=== PATIENT | male | born 1970 | race African-American/Black ===

== ENCOUNTER → 2020-02-03 12:12 | Outpatient (CLI) | payer OTHER, SELFPAY ==
--- NOTE | 2020-02-03 | DI.RAD.S_ITS ---
PROCEDURE: FL HIP INJECTION MR/CT RT INDICATIONS: PAIN IN RIGHT HIP TECHNIQUE: The indications, alternatives, benefits, risks, and complications of the procedure were explained to the patient. Written informed consent was obtained and placed in the chart. The hip was examined fluoroscopically with the legs fixed in slight internal rotation, and a site for needle placement chosen for entry into the hip joint from an anterior approach. Care was taken to locate the common femoral artery and vein beforehand. The skin was prepped and draped in a sterile fashion, and 1% Lidocaine infiltrated from skin down to joint capsule. A spinal needle was inserted into the joint, and a small amount of iodinated contrast media injected to confirm intra-articular placement of the needle tip. This was followed by approximately 12 mL dilute solution of a gadolinium containing MR contrast agent. The needle was removed and a dressing was applied. The patient was given postprocedural instructions and sent to the MR suite for imaging. FINDINGS: A single fluoroscopic spot image demonstrates intra-articular location of injected iodinated contrast. IMPRESSION: Successful fluoroscopically guided administration of dilute Gadolinium solution into the hip joint for MR arthrogram. Dictated by: Ish Metcalf M.D. on 02/03/2020 at 14:26 Approved by: Ish Metcalf M.D. on 02/03/2020 at 14:26
--- NOTE | 2020-02-03 | DI.MRI.S_ITS ---
PROCEDURE: MR HIP RT W CON INDICATIONS: PAIN IN RIGHT HIP TECHNIQUE: After the administration of 10 mL of dilute intra-articular Gadolinium contrast, coronal STIR of the bony pelvis; coronal and oblique axial T1 spin echo with fat saturation, axial T2 fast spin echo with fat saturation, sagittal T1 spin echo with and without fat saturation of the involved hip. COMPARISON: None. FINDINGS: Image quality: Excellent. Bones and joints: Mild right hip joint osteoarthritis is seen with superior joint space narrowing and subchondral sclerosis. No intraosseous lesions or fractures. No avascular necrosis of the femoral head. The visualized lower lumbar spine appears normally aligned. The ligamental, neck, and labral plicae appear normal where visualized. Tendons and ligaments: The gluteus medius and minimus tendons appear intact, without associated muscle atrophy. The nearby proximal iliotibial band also appears intact. The iliopsoas tendon appears intact, without adjacent bursal fluid collections or evidence for impingement syndrome. The origin of the hamstring tendon is intact at the ischial tuberosity, as well as the associated sacrotuberous ligament. The straight and reflected heads of the rectus femoris muscle origin appear intact, as well as the conjoint tendon. The ligamentum teres appears intact where visualized. Labrum and cartilage: Focal area of signal abnormality involving superior anterior labrum is seen suggestive of focal superior anterior labral tear. Cartilage surface of the femoral head appears of normal thickness. No paralabral cysts. The alpha angle of the femur is within normal limits at less than 55 degrees. Soft tissues: Visualized muscles demonstrate normal bulk and internal signal. Quadratus femoris muscle demonstrates no internal edema to suggest ischiofemoral impingement. The proximal sciatic neurovascular bundle appears normal adjacent to the hamstring tendons. No free pelvic fluid. Bladder wall thickness is normal. Genitourinary structures and bowel loops appear normal where visualized. IMPRESSION: 1. Asymmetric mild right hip joint osteoarthritic changes. No marrow edema. No fracture or dislocation. No evidence of avascular necrosis. 2. Suggestion of focal superior anterior right hip labral tear. 3. No gross muscle or tendon signal abnormality. Dictated by: Sushil Lara M.D. on 02/03/2020 at 14:32 Approved by: Sushil Lara M.D. on 02/03/2020 at 14:34
== END ==
PROVIDERS: PCP General Practice; Referring Provider General Practice; Visit Provider General Practice
DX: M25.551 Pain in right hip (principal); M16.11 Unilateral primary osteoarthritis, right hip
CPT/HCPCS: 27093; 73722; 77002

== ENCOUNTER 2023-08-11 10:51 | Day surgery (SDC) | payer OTHER, SELFPAY ==
[2023-08-04 13:51] VITALS: BMI 36.6
--- NOTE | 2023-08-11 | PATH_ITS ---
[facility] Accession Number: [id number] No. of containers..01 Tissue . 01 Material submitted: . chest - RIGHT CHEST WALL . 01 Clinical history: . MASS . 01 Diagnosis: Right Chest Wall, Excision: Mature fibroadipose tissue, consistent with lipoma. NAFISA 08/14/2023 0919 Local . 01 Electronically signed: . Rodrigo Houston MD, Dermatopathologist NPI- [id number] . 01 Gross description: . The specimen is received in formalin labeled with the patient's named, , and right chest wall mass, and consists of a yellow, lobulated, soft tissue fragment measuring 9.1 x 6.5 x 4.3 cm. The external surface is inked blue and sectioning reveals a yellow, lobulated, unremarkable cut surface. [employer] sections are submitted in cassettes A1-A3. ([id number]) /NAFISA 08/12/2023 1012 Local . 01 Pathologist provided ICD-10: D17.9 . 01 CPT . 917615 Specimen Comment: A courtesy copy of this report has been sent to [phone] Performed at: 01 [facility] [address] [place] [address], [place], [place] [id number] MD Chester Mueller MD Phone: [phone]
[2023-08-11 11:26] VITALS: BMI 36.6
[2023-08-11 11:31] VITALS: BP 139/85; PULSE 77; RESP 17; TEMP 36.1; O2SAT 97
[2023-08-11] MEDS: LACTATED RINGERS 1,000 ML 42 ML IV (11:33)
--- NOTE | 2023-08-11 11:33 | PM.PREOP ---
Pre-operative Note COVID-19 COVID-19 status: Not tested Interval Note History & Physical reviewed/Exam performed by Physician: Yes Changes to H&P: No ASA Class (for procedural sedation): II
--- NOTE | 2023-08-11 12:24 | SUR.OPER ---
Lateral on a viera bag, head on pillow, gel axillary roll in place, bottom leg bent with gel pad under knee to foot, upper leg straight and supported with pillows. Upper arm supported by pillows and secured over bottom arm to padded arm board. Safety belt at hip, tape over blanket lower legs.
[2023-08-11] MEDS: LIDOCAINE 1% W/EPI 20 ML INJ (12:30)
[2023-08-11] MEDS: BUPIVACAINE 0.25% (PF) VIAL 30 ML INJ (12:31)
--- NOTE | 2023-08-11 13:04 | PM.OP.1 ---
Operative Date/Time/Diagnoses Date of procedure: 08/11/23 Time of procedure: 13:04 Pre-op diagnosis: Right flank lipoma Post-op diagnosis: same Procedure & Clinicians Procedure: Excisional biopsy of right flank lipoma Same procedure as scheduled: Yes Surgeon: Scot Almaraz Anesthesia Type: General Operative Notes Procedure in detail: The patient is a 52-year-old man with a right flank lipoma that was growing and was causing discomfort. He was consented for excisional biopsy in the operating room. The patient was brought to the operating room and placed on the table supine position. General anesthesia was induced with LMA. He was then positioned in the left lateral decubitus position on the beanbag. He was secured and the area was prepped and draped in the usual fashion. A time-out was performed. We made a 10 cm transverse incision over the mass. We dissected down through the dermis and encountered a fatty mass consistent with a lipoma. The mass was about 10 cm in its greatest dimension. The lipoma was dissected free from the surrounding subcutaneous adipose tissue with a combination of blunt dissection and cautery. The deepest portion of the mass extended to the muscle fascia along the anterior border of the latissimus dorsi. The mass was removed EN bloc. A few small bleeders were cauterized. Local was injected into the muscle and fascia as well as the surrounding dermis. We then closed the wound in layers using multiple interrupted 3-0 Vicryl dermal sutures and a running 4-0 Monocryl subcuticular stitch. EBL: 10 mL Specimen: Right flank lipoma Post-operative Condition: stable Disposition: PACU
[2023-08-11 13:09] VITALS: BP 122/72; PULSE 94; RESP 18; O2SAT 99
[2023-08-11 13:13] VITALS: BP 115/81; PULSE 98; RESP 13; O2SAT 98
[2023-08-11 13:18] VITALS: BP 119/87; PULSE 95; RESP 14; O2SAT 98
[2023-08-11 13:23] VITALS: BP 139/91; PULSE 89; RESP 12; O2SAT 99
== END 2023-08-11 13:41 | disposition home or self-care (01) ==
PROVIDERS: PCP Nurse Practitioner Family; Referring Provider Surgery; Visit Provider Surgery
PROC: (CPT 21931; principal; 2023-08-11 12:15)
DX: D17.1 Benign lipomatous neoplasm of skin and subcutaneous tissue of trunk (principal)
CPT/HCPCS: 21931; J1100; J2250; J2405; J2704; J3010

== ENCOUNTER → 2023-08-30 08:09 | Outpatient (CLI) | payer OTHER, SELFPAY ==
--- NOTE | 2023-08-30 08:10 | DI.MRI.S_ITS ---
PROCEDURE: MR FOOT RT WO CON INDICATIONS: Pain in right foot TECHNIQUE: Multiphasic, multisequence MRI of the forefoot was performed, without intravenous contrast administration. COMPARISON: None. FINDINGS: Image quality: Excellent. Bones and joints: No bone marrow contusions or metatarsal stress fractures. Mild degenerative changes are seen in the 1st metatarsophalangeal joint and in the interphalangeal joints of the toes. Sesamoids are normally aligned. No intraosseous lesions. Soft tissues: Foci of metallic susceptibility artifact are seen at the plantar aspect of the midfoot. There is a small focal defect within the adjacent plantar aponeurosis. Edema is seen within the flexor digitorum muscle. Central tendon spans of the flexor digitorum muscles are grossly intact. The flexor digitorum longus tendons appear to be intact. The plantar fascia is otherwise intact. The visualized plantar foot muscles otherwise demonstrate normal signal and bulk. Visualized flexor and extensor tendons otherwise appear intact, without tenosynovitis. The distal insertions of the peroneus brevis and longus tendons appear intact. The principal Lisfranc ligament appears intact. No interdigital mass. Sagittal images demonstrate no evidence for plantar plate tears. IMPRESSION: 1. Soft tissue edema at the plantar aspect of the mid foot involving the subcutaneous tissues as well as the flexor digitorum brevis muscle. There is a small defect in the plantar aponeurosis at the same level. Findings are suspicious for prior penetrating injury and/or instrumentation. 2. No acute osseous abnormality. No significant tendon tearing is seen. Approved by: Ish Metcalf M.D. on 08/31/2023 at 15:36
== END ==
PROVIDERS: PCP Nurse Practitioner Family; Referring Provider Podiatrist; Visit Provider Podiatrist
DX: M72.2 Plantar fascial fibromatosis (principal); M79.671 Pain in right foot; R60.0 Localized edema
CPT/HCPCS: 73718

== ENCOUNTER 2023-11-05 07:17 | Day surgery (SDC) | payer OTHER, SELFPAY ==
--- NOTE | 2023-11-05 | PATH_ITS ---
[facility] Accession Number: [id number] No. of containers..04 Tissue . 01 Material submitted: . PART A: cecum - CECAL POLYP PART B: colon - TRANSVERSE POLYP PART C: splenic flexure - SPLENIC FLEXURE POLYP PART D: splenic flexure - SPLENIC FLEXURE MASS . 01 Diagnosis: A. CECUM, POLYP: Tubular adenoma. . B. TRANSVERSE COLON, POLYP: Tubular adenoma. . C. SPLENIC FLEXURE, POLYP: Tubulovillous adenoma with foci of high-grade dysplasia. Please see comment. No evidence of invasive carcinoma. Cauterized biopsy edge is negative for dysplasia. . D. SPLENIC FLEXURE, MASS: Tubulovillous adenoma. No evidence of malignancy or high-grade dysplasia. See comment. [facility] 11/16/2023 1559 Local . 01 Comment: D. Margins cannot be assessed due to extensive fragmentation. . C-D. Dr. Payan also reviewed parts C and D of this case, and agrees with the diagnoses. Dr. Rao discussed preliminary results with Dr. Almaraz on 11/13/2023 at 3:52 p.m. . 01 Electronically signed: . Maggy Rao MD, Pathologist NPI- [id number] . 01 Gross description: . A. Received in formalin with two patient identifiers and cecal polyp, are two renae-white polypoid tissues which are differentially inked, bisected, and entirely submitted in cassette A1. B. Received in formalin with two patient identifiers and transverse polyp, are three renae-white tissues ranging from 0.2 to 0.3 cm in greatest dimension. Entirely submitted in cassette B1. C. Received in formalin with two patient identifiers and splenic flexure polyp, is a 2.7 x 2.0 x 1.6 cm renae-brown pedunculated polyp which is inked at the base. The specimen is quadrisected and fragments upon sectioning. Entirely submitted in cassettes C1-C4. D. Received in formalin with two patient identifiers and splenic flexure mass, is a 4.8 x 2.0 x 1.2 cm aggregate of renae-brown, friable and fragmented polypoid tissue. Entirely submitted in cassettes D1-D7. ([id number]) /NAFISA 11/10/2023 1200 Local . 01 Pathologist provided ICD-10: D12.0, D12.3 . 01 CPT . 793088, 045488, 415618, 896778 Specimen Comment: A courtesy copy of this report has been sent to [phone] Performed at: 01 [facility] [address] [place] [address], [place], [place] [id number] MD Chester Mueller MD Phone: [phone]
[2023-11-05] MEDS: LACTATED RINGERS 1,000 ML 100 ML IV (07:43)
--- NOTE | 2023-11-05 07:44 | P.HP_ITS ---
History of Present Illness History of Present Illness Date Patient Seen: 11/05/23 Time Patient Seen: 07:44 Chief complaint: Colonoscopy Narrative: Leonarda is a 53-year-old man who is here for a screening colonoscopy. He has never had 1 before. No family history of colon cancer. [facility] Medical History Right hip pain MAMIE (obstructive sleep apnea) Prediabetes Hyperlipoproteinemia Elevated blood pressure reading without diagnosis of hypertension Family History Grandmother Hypertension Diabetes mellitus Mother Diabetes mellitus Social History household members: spouse Smoking Status: Former smoker alcohol intake: current Meds Home Medications and Allergies Home Medications Medication Instructions Recorded Confirmed Type ibuprofen 400 mg tablet 400 mg PO Q6H PRN Pain (Scale 08/03/23 11/05/23 History Score 4-6) lisinopril 10 mg tablet 10 mg PO DAILY 08/03/23 11/05/23 History Allergies Allergy/AdvReac Type Severity Reaction Status Date / Time morphine Allergy Rash Verified 11/05/23 07:40 Exam Const General: healthy appearing Resp Effort & Inspection: normal respiratory effort Assessment & Plan Assessment and plan (1) Colon cancer screening: Status: Acute Plan We reviewed the risks and benefits of colonoscopy for colon cancer screening and he would like to proceed.
[2023-11-05 07:45] VITALS: BP 139/92; PULSE 77; RESP 18; TEMP 36.2; O2SAT 99
--- NOTE | 2023-11-05 09:23 | PM.OP.COLON ---
Operative Date/Time/Diagnoses Date of procedure: 11/05/23 Time of procedure: 09:23 Pre-op diagnosis: Colon cancer screening Post-op diagnosis: same Procedure & Clinicians Study performed: Colonoscopy Same procedure as scheduled: Yes Surgeon: Scot Almaraz Procedure Notes Procedure in detail: Surgeon: Scot Almaraz MD Anesthesia: Maggy Bagley CRNA Procedure: The patient was brought to the endoscopy suite, placed in left lateral decubitus position. The patient was connected to monitoring devices. A time-out was performed. Sedation was administered. Once the patient was adequately sedated, a digital rectal exam was performed and was normal. The scope was then inserted and advanced to the cecum where the appendiceal orifice was identified and photographed. The scope was then slowly withdrawn over greater than 6 minutes. The mucosa was thoroughly inspected. There was a 1 cm polyp in the cecum removed with a cold snare. There was a 7 mm polyp in the transverse colon removed with a cold snare. There was a 1.2 cm polyp in the distal transverse colon or at the splenic flexure removed with the hot snare. There was a roughly 3 cm mass at the splenic flexure which was biopsied with a hot snare. Several large pieces were removed and retrieved with a Padron net or by suctioned. The mass was not completely removed due to its large size. We then injected tattoo ink proximally and distally to the large mass of the splenic flexure. The proximal tattoo was roughly where the 1.2 cm polyp was biopsied. The scope was retroflexed in the rectum. No other abnormalities were seen. The scope was straightened and removed. The patient was awakened and brought to recovery. Scope withdrawal time: 37 minutes Sedation time: 41 minutes EBL: 10 mL Findings: 1 cm polyp in the cecum, 7 mm polyp in the transverse colon, 1.2 cm polyp in the distal transverse colon and splenic flexure mass Post-procedure Disposition: PACU
[2023-11-05 09:28] VITALS: BP 119/78; PULSE 79; RESP 20; TEMP 36.6; O2SAT 100
[2023-11-05 09:31] VITALS: BP 129/83; PULSE 70; RESP 13; O2SAT 99
[2023-11-05 09:36] VITALS: BP 139/89; PULSE 73; RESP 11; O2SAT 100
[2023-11-05 09:41] VITALS: BP 145/96; PULSE 72; RESP 13; O2SAT 98
== END 2023-11-05 10:01 | disposition home or self-care (01) ==
PROVIDERS: PCP Nurse Practitioner Family; Referring Provider Surgery; Visit Provider Surgery
PROC: 0DJD8ZZ Inspection of Lower Intestinal Tract, Via Natural or Artificial Opening Endoscopic (ICD-10-PCS; CPT 45378; principal; 2023-11-05 08:15)
DX: Z12.11 Encounter for screening for malignant neoplasm of colon (principal); D12.0 Benign neoplasm of cecum; D12.3 Benign neoplasm of transverse colon
CPT/HCPCS: 45381; 45385; 45380; J2704

== ENCOUNTER → 2023-11-13 09:25 | Outpatient (CLI) | payer OTHER, SELFPAY ==
--- NOTE | 2023-11-13 09:26 | DI.CT.S_ITS ---
PROCEDURE: CT ABDOMEN PELVIS W CON INDICATIONS: colon mass TECHNIQUE: After the administration of intravenous contrast, axial sections acquired from the lung bases to the pubic symphysis. Coronal and sagittal reformats were performed. For radiation dose reduction, the following was used: automated exposure control, adjustment of mA and/or kV according to patient size. COMPARISON: None. FINDINGS: Image quality: Diagnostic. Lower Chest: No significant findings. ABDOMEN: Liver: Subcentimeter hypoattenuating lesion at the liver dome, too small to characterize by CT but probably representing a small cyst (series 2, image 9). Gallbladder: Cholelithiasis without wall thickening or adjacent fat stranding to suggest acute cholecystitis. Biliary ducts: No biliary dilation. Pancreas: No ductal dilation. Spleen: Size is within normal limits. Adrenal Glands: No adrenal nodules. Kidneys and Ureters: No hydronephrosis. No solid mass. No complex renal cystic lesion which requires follow up. Stomach and Bowel: Questionable short segment of bowel wall thickening of the distal transverse colon (series 2, image 25). No adjacent adenopathy. Peritoneum: No abnormal intraperitoneal fluid. No free air. Ventral Wall: No significant ventral hernia. Abdominal Nodes: No retroperitoneal or mesenteric adenopathy by size criteria. Vessels: Aorta and inferior vena cava are normal in size. PELVIS: Pelvic Organs: Small right testicular hydrocele. Bladder: Diffuse bladder wall thickening, although the bladder is under distended. Pelvic Nodes: No enlarged lymph nodes. Miscellaneous: No inguinal hernias are seen. Bones: No aggressive osseous abnormality. IMPRESSION: Questionable short segment of bowel wall thickening of the distal transverse colon. No adjacent adenopathy. No evidence of metastatic disease. Diffuse bladder wall thickening, likely due to underdistention, less likely cystitis. Consider correlation with urinalysis. Small right testicular hydrocele. Dictated by: Garrison Granados M.D. on 11/13/2023 at 14:16 Approved by: Garrison Granados M.D. on 11/13/2023 at 14:22
== END ==
PROVIDERS: PCP Nurse Practitioner Family; Referring Provider Surgery; Visit Provider Surgery
DX: K63.89 Other specified diseases of intestine (principal); N43.3 Hydrocele, unspecified; K80.20 Calculus of gallbladder without cholecystitis without obstruction
CPT/HCPCS: 74177; Q9967

== ENCOUNTER 2023-12-22 09:31 | Inpatient (IN) | payer OTHER, SELFPAY ==
[2023-12-17 12:44] VITALS: BMI 35.2
[2023-12-22] VITALS (16 sets, daily range): BP systolic 110–123; BP diastolic 49–80; PULSE 81–107; RESP 13–19; TEMP 35.9–36.8; O2SAT 95–100; BMI 34.7
--- NOTE | 2023-12-22 | PATH_ITS ---
[facility] Accession Number: [id number] No. of containers..01 Tissue . 01 Material submitted: . colon - TRANSVERSE COLON - STITCH IS PROXIMAL . 01 Diagnosis: TRANSVERSE COLON, SEGMENTAL RESECTION: 1. Tubulovillous adenoma. 2. No evidence of invasive carcinoma. 3. Submucosal pigmented material consistent with surgical tattoo. 4. Margins are free of dysplasia. [facility] 12/25/2023 1605 Local . 01 Electronically signed: . Maggy Rao MD, Pathologist NPI- [id number] . 01 Gross description: . Received in formalin with two identifiers and transverse colon, is an oriented segment of colon with a suture designating proximal per the requisition, and measuring 8.9 cm in length by 3.2 cm in average diameter, and a large amount of attached adipose and mesentery extending out to 27.5 cm. The serosa is renae, smooth, and unremarkable. The proximal margin is inked blue, the distal margin is inked black, and the mesenteric margin is inked green. The lumen contains a small amount of mucohemorrhagic material. A friable polypoid lesion is identified measuring 3.6 x 3.0 x 2.4 cm, and is located 4.1 cm from the nearest blue-inked margin. The lesion is grossly confined to the mucosa without extension into the submucosa. Additionally, two distinct rudolph areas of mucosa consistent with tattoo ink are identified, the most proximal tattoo-inked area measures 2.2 x 1.7 cm and is located 2.4 cm from the nearest blue-inked margin. The second more distal tattoo-inked area measures 3.9 x 1.2 cm and is 1.3 cm from the nearest black-inked margin. No additional lesion are identified, and the mucosa is renae and velvety with normal appearing folds. The hanks average 0.3 cm thick with no diverticula identified. Palpation reveals 39 renae to brown lymph node candidates ranging from 0.1 to 0.9 cm in greatest dimension. . Mass Spec sections are submitted as follows: A1: Rep blue margin en face. A2: Rep black margin en face. A3-A6: Polypoid lesion with underlying mucosa. A7-A8: Remaining detached and fragmented polypoid lesion. A9-A10: Entire proximal tattoo-inked area. A11-A12: Entire distal tattoo-inked area. A13: Normal full thickness section. A14: Three intact lymph node candidates. A15: Single bisected lymph node candidate. A16: Three intact lymph node candidates. A17: Two intact lymph node candidates. A18: Single bisected lymph node candidate. A19: Two intact lymph node candidates. A20: Four intact lymph node candidates. A21: Five intact lymph node candidates. A22: Three intact lymph node candidates. A23: Five intact lymph node candidates. A24: Five intact lymph node candidates. A25: Four intact lymph node candidates. ([id number]) /MRV 12/23/2023 1420 Local . 01 Pathologist provided ICD-10: D12.3 . 01 CPT . 730124 Specimen Comment: A courtesy copy of this report has been sent to [phone] Performed at: 01 [facility] [address], [place], [place] [id number] MD Chester Mueller MD Phone: [phone]
[2023-12-22] MEDS: LACTATED RINGERS 1,000 ML 42 ML IV ×3 (10:07→15:18)
[2023-12-22] MEDS: ACETAMINOPHEN 325 MG TABLET 975 MG PO (10:07)
--- NOTE | 2023-12-22 10:25 | P.HP_ITS ---
History of Present Illness History of Present Illness Date Patient Seen: 12/22/23 Time Patient Seen: 10:25 Chief complaint: Left Laparoscopically Assisted Colectomy Narrative: Leonarda is a 53 year old man who had a screening colonoscopy in October with findings of a large tubulovillous adenoma and a large colon mass in the distal transverse colon. The mask was sampled and biopsy results came back as tubulovillous adenoma without high-grade dysplasia however the mass could not be completely removed to its location near the splenic flexure. A follow up CT scan demonstrated no evidence of metastatic disease. [facility] Medical History (Updated 12/17/23 @ 13:17 by Nasima Lopez RN) History of COVID-19 (2020) Right hip pain MAMIE (obstructive sleep apnea) Prediabetes Hyperlipoproteinemia Elevated blood pressure reading without diagnosis of hypertension Surgical History History of photorefractive keratectomy (PRK) Hx of colonoscopy (11/05/23) History of surgery (2008) History of biopsy (08/11/23) Family History Grandmother Hypertension Diabetes mellitus Mother Diabetes mellitus Social History household members: spouse and children Smoking Status: Former smoker alcohol intake: current Meds Home Medications and Allergies Home Medications Medication Instructions Recorded Confirmed Type ibuprofen 400 mg tablet 400 mg PO Q6H PRN Pain (Scale 08/03/23 12/22/23 History Score 4-6) lisinopril 10 mg tablet 20 mg PO BEDTIME 08/03/23 12/22/23 History neomycin 500 mg tablet 1 g (2 x 500 mg) PO TID 3 doses #6 12/11/23 12/22/23 Rx tabs Allergies Allergy/AdvReac Type Severity Reaction Status Date / Time morphine Allergy Mild Rash Verified 12/22/23 10:09 Exam Vital Signs (past 8 hours): - 12/22/23 10:11 Temperature 97.5 F L Pulse Rate 83 Respiratory Rate 16 Blood Pressure 123/80 Pulse Oximetry 98 Oxygen Delivery Method Room Air Oxygen Delivery Method Room Air Const General: healthy appearing Resp Effort & Inspection: normal respiratory effort GI Palpation: soft Assessment & Plan Assessment and plan (1) Colonic mass: Status: Acute Plan I discussed the pathological findings with Leonarda and the high likelihood that there could be invasive cancer in the large colon mass. Even if there is not invasive cancer it is likely to progress to cancer in the near future and since it was not able to be removed endoscopically I recommended a laparoscopic- assisted left hemicolectomy. We reviewed the risks and benefits. He would like to proceed.
--- NOTE | 2023-12-22 10:40 | SUR.OPER ---
Lithotomy on padded OR bed. [place] Pad Positioner under torso. Head on pillow, LEFT arm padded and tucked at side. RIGHT ARM ON PADDED ARMBOARD. Legs secured in padded yellow fins stirrups.
--- NOTE | 2023-12-22 10:49 | SUR.OPER ---
Supine on padded OR bed and pink pad , head on pillow, left arm secured on padded arm board at <90 degrees abduction, right arm tucked and padded at patients side. legs uncrossed, safety belt at thigh, tape over blanket over lower legs.
[2023-12-22 11:14] LABS: Add Manual Diff / Slide Review NO; Basophils Absolute Auto 0 /uL (0-100); Basophils Percent Auto 0.6 % (0-2); Eosinophils Absolute Auto 0 /uL (0-450); Eosinophils Percent Auto 1.4 % (2-4); Hematocrit 40.9 % (41-53); Lymphocytes Absolute Auto 1200 /uL (1100-4500); Lymphocytes Percent Auto 40.2 % (25-40); Mean Corpuscular HGB Conc 34.3 % (30-36); Mean Corpuscular Hemoglobin 29.9 PG (26-34); Mean Corpuscular Volume 87.2 fL (80-100); Monocytes Absolute Auto 200 /uL (0-900); Monocytes Percent Auto 8.5 % (3-14); Neutrophils Absolute Auto 1400 /uL (1500-7000); Neutrophils Percent Auto 49.3 % (50-75); Platelet Count 191 X10^3/uL (150-400); Red Blood Cell Count 4.69 X10^6/uL (4.5-5.9); Red Cell Distribution Width 13.1 % (11.6-14.8); White Blood Cell Count 2.9 X10^3/uL (4.5-11.0)
[2023-12-22] MEDS: AMPICILLIN/SULBACTAM 3 GM 3 GM in SODIUM CHLORIDE 0.9% 100 ML IV ×3 (11:20→15:06)
[2023-12-22] MEDS: BUPIVACAINE 0.5% (PF) 30 ML, EPINEPHrine 0.15 MG INJ (11:30)
[2023-12-22 11:40] LABS: BUN Creatinine Ratio 6.6 (6-22); Blood Urea Nitrogen 6 mg/dL (9-20); Calcium 8.8 mg/dL (8.4-10.2); Carbon Dioxide 28 mmol/L (22-32); Chloride 105 mmol/L (98-107); Estimated Glomerular Filt Rate > 60 mL/min (>60); Glucose 157 mg/dL (70-100); HEMOLYSIS < 15 (0-50); Potassium 3.8 mmol/L (3.4-5.1); Sodium 137 mmol/L (137-145)
[2023-12-22] MEDS: BUPIVACAINE LIPOSOME 266 MG/20 ML VIAL INJ (11:45)
[2023-12-22 12:10] LABS: Carcinoembryonic Antigen 0.9 ng/mL (0.1-3.0)
[2023-12-22 13:17] LABS: Hemoglobin A1C% w Est Avg Glu 6.1 % (4.0-6.0)
--- NOTE | 2023-12-22 15:22 | PM.OP.1 ---
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 He was consented for a laparoscopic-assisted left hemicolectomy. The patient was given preoperative Unasyn. The patient was brought to the operating room, placed on the table in the supine position and general endotracheal anesthesia was induced. A Noel catheter was placed. The abdomen was prepped and draped in the usual fashion and a time-out was performed. We made a supraumbilical cut down using the Ortiz technique. A Ortiz port was placed and the abdomen was insufflated to 15 mmHg. The camera was inserted and there was no evidence of an injury from the entry. Next we placed 5 mm ports in the right upper quadrant, left upper quadrant and left lower quadrant. We started by taking down the omentum off of the distal transverse colon. We then took down the lateral attachments along the white line of Toldt. There were adhesions of the sigmoid colon to the anterior abdominal wall near the left myopectineal orifice and these were taken down sharply. We then desufflated the abdomen and extended the supraumbilical incision to a 5 cm upper midline incision. An Min wound retractor was positioned. We exteriorized the distal transverse colon and splenic flexure. The tattoo ink was visible and a soft intraluminal mass could be palpated. There were no hard nodes in the mesentery. We then divided the colon at approximately the mid transverse colon and the mid descending colon using the linear cutting stapler with 75 mm blue loads. We then took down the mesentery to within 2 cm of the ligament of Treitz using the LigaSure. We then fashioned 2 layer hand-sewn end-to-end anastomosis using an inner layer of 3-0 PDS and an outer layer of interrupted Lembert sutures with 3-0 silk. We then irrigated the abdomen with 2 L of warm saline. We then placed some residual omentum over the bowel and transitioned to clean gown and gloves. We injected some Exparel into the pre and post fascial planes and closed the upper midline wound with a running 0 PDS reinforced by multiple interrupted 0 Vicryl internal retention sutures. The skin was closed with mitzy and sterile dressings were applied. EBL: 150 mL Specimen: Distal transverse colon and splenic flexure Mitchell WORTHY provided assistance with exposure, retraction and closure of incisions. Post-operative Condition: stable Disposition: PACU
[2023-12-22] MEDS: DEXTROSE 5%-LACTATED RINGERS 1,000 ML 75 ML IV (17:00)
[2023-12-22] MEDS: HYDROMORPHONE 0.5 MG INJ IV (17:35)
[2023-12-22] MEDS: ACETAMINOPHEN 325 MG TABLET 650 MG PO (20:32)
[2023-12-22] MEDS: IBUPROFEN 600 MG TABLET PO (20:33)
[2023-12-22] MEDS: HYDROCODONE/ACET 5/325 TABLET 1 TAB PO (21:35)
[2023-12-23 05:25] LABS: Add Manual Diff / Slide Review NO; Basophils Absolute Auto 0 /uL (0-100); Basophils Percent Auto 0.1 % (0-2); Eosinophils Absolute Auto 0 /uL (0-450); Hematocrit 36.4 % (41-53); Hemoglobin 12.4 g/dL (13.5-17.5); Lymphocytes Absolute Auto 800 /uL (1100-4500); Lymphocytes Percent Auto 6.2 % (25-40); Mean Corpuscular HGB Conc 34.1 % (30-36); Mean Corpuscular Hemoglobin 29.7 PG (26-34); Mean Corpuscular Volume 87.2 fL (80-100); Monocytes Absolute Auto 1200 /uL (0-900); Monocytes Percent Auto 9.8 % (3-14); Neutrophils Absolute Auto 10600 /uL (1500-7000); Neutrophils Percent Auto 83.9 % (50-75); Platelet Count 181 X10^3/uL (150-400); Red Blood Cell Count 4.17 X10^6/uL (4.5-5.9); Red Cell Distribution Width 12.9 % (11.6-14.8); White Blood Cell Count 12.6 X10^3/uL (4.5-11.0)
[2023-12-23 05:42] LABS: BUN Creatinine Ratio 10.2 (6-22); Blood Urea Nitrogen 10 mg/dL (9-20); Calcium 8.1 mg/dL (8.4-10.2); Carbon Dioxide 28 mmol/L (22-32); Chloride 105 mmol/L (98-107); Estimated Glomerular Filt Rate > 60 mL/min (>60); Glucose 147 mg/dL (70-100); HEMOLYSIS < 15 (0-50); Potassium 4.1 mmol/L (3.4-5.1); Sodium 136 mmol/L (137-145)
[2023-12-23 06:04] VITALS: BP 124/65; PULSE 87; RESP 16; TEMP 37.1; O2SAT 98
[2023-12-23] MEDS: HYDROCODONE/ACET 5/325 TABLET 1 TAB PO ×4 (06:11→20:44)
[2023-12-23 08:00] VITALS: BP 122/73; PULSE 103; RESP 16; TEMP 36.6; O2SAT 99
[2023-12-23] MEDS: ENOXAPARIN 40 MG/0.4 ML SYRINGE SUBCUT (08:43)
[2023-12-23 09:35] VITALS: O2SAT 99
--- NOTE | 2023-12-23 11:18 | PM.PN.1 ---
Subjective Subjective Date Patient Seen: 12/23/23 Time Patient Seen: 11:18 Interval history: Leonarda feels well today. Noel was removed this morning. He is tolerating small amounts of clear liquids. Exam Vital Signs (past 8 hours): - 12/23/23 06:04 12/23/23 08:00 12/23/23 09:35 Temperature 98.8 F 97.8 F Pulse Rate 87 103 H Respiratory Rate 16 16 Blood Pressure 124/65 122/73 Pulse Oximetry 98 99 99 Oxygen Delivery Method Nasal Cannula Oxygen Flow Rate 2 2 Oxygen Delivery Method Nasal Cannula Oxygen Flow Rate 2 Narrative Exam Narrative: Abdomen is soft Dressings are in place Objective Labs 12/23/23 05:14 12/23/23 05:14 Labs: Laboratory Results - last 24 hr 12/22/23 12/23/23 11:30 05:14 WBC 12.6 H D RBC 4.17 L Hgb 12.4 L Hct 36.4 L MCV 87.2 MCH 29.7 MCHC 34.1 RDW 12.9 Plt Count 181 Neut % (Auto) 83.9 H D Lymph % (Auto) 6.2 L D [place] % (Auto) 9.8 Eos % (Auto) 0.0 L Baso % (Auto) 0.1 Neut # (Auto) 00915 H Lymph # (Auto) 800 L [place] # (Auto) 1200 H Eos # (Auto) 0 Baso # (Auto) 0 Sodium 137 136 L Potassium 3.8 4.1 Chloride 105 105 Carbon Dioxide 28 28 BUN 6 L 10 Creatinine 0.91 0.98 Estimated GFR > 60 > 60 BUN/Creatinine Ratio 6.6 10.2 Glucose 157 H 147 H Hemoglobin A1c 6.1 H Calcium 8.8 8.1 L Carcinoembryonic Ag 0.9 [facility] Medical History (Updated 12/17/23 @ 13:17 by Nasima Lopez RN) History of COVID-19 (2020) Right hip pain MAMIE (obstructive sleep apnea) Prediabetes Hyperlipoproteinemia Elevated blood pressure reading without diagnosis of hypertension Surgical History History of photorefractive keratectomy (PRK) Hx of colonoscopy (11/05/23) History of surgery (2008) History of biopsy (08/11/23) Family History Grandmother Hypertension Diabetes mellitus Mother Diabetes mellitus Social History household members: spouse and children Smoking Status: Former smoker alcohol intake: current Assessment & Plan Assessment and plan (1) Colonic mass: Status: Acute Plan Doing well following laparoscopic assisted left hemicolectomy Await flatus before starting a regular diet Noel came out today Start Lovenox today Ambulate. Quality VTE Deep Vein Thrombosis/Pulmonary Embolism Present on Admission: No
[2023-12-23 12:00] VITALS: BP 127/57; PULSE 103; RESP 16; TEMP 36.6; O2SAT 99
--- NOTE | 2023-12-23 12:49 | PC.NURSE ---
Pt is up walking independently in the halls. States he has passed flatus several times and is having crampy pain. Able to tolerate full liquids for lunch without nausea.
--- NOTE | 2023-12-23 14:09 | CM.DANOTE ---
Initial DCP Assessment Visit Note Reviewed EMR and team rounds for status updates. Met with pt at bedside to introduce self and role, pt was found to be sitting upright in bed, alert/oriented, and able to discuss his concerns about his medical condition, worries about the pathology that is pending, and that he will be discharging home, his will transport, once he's medically cleared for d/c. Pt lives independently in his own home with his and young adult son, he is currently working full-time, but states that his employer gives him a lot of flexibility for medical needs. Pt declined any DCP needs/resources at this time. Payor: Porfirio Bhatt PCP: Dr. Max Morocho Pt is a 89 year-old male post-op day 1 from a planned L-sided lap colectomy. Pt had a screening colonoscopy in October that revealed a large tubulovillous adenoma as well as a large mass in his colon. Initial pathology was negative for malignancy, however Dr. Almaraz felt that the mass was likely cancerous in the center, based on presentation. The mass could not be completely excised, so tissue was sent to pathology for diagnostic testing. Dr. Almaraz also confirmed by CT imaging that there were no metastasis at this time. Today, pt was up and mobilizing by himself around the hallways, he is tolerating clear liquids well, had his vale removed, and is progressing diet/awaiting bowel functioning to return. DCP will continue to follow and assist with any needs/recommendations prior to pt's d/c. Discharge Planning/Care Management CM Discharge Assessment Start: 12/23/23 12:46 Freq: Status: Active Protocol: Document 12/23/23 12:46 DPL (Rec: 12/23/23 12:48 DPL [id number]) Discharge Planning Assessment Assigned Work Car Operator DILMA Couch Advance Directives? No History Provided By Patient,Medical Record Has Patient been admitted in last 30 No days? Prior Living Arrangements House Household Members spouse,children Type of transporation used prior to Drives own vehicle admit Independent with ADL's Yes Is patient alert and oriented? Yes Caregiver for Another No DME Already Rented / Owned FWW / Walker Comment No identified home d/c needs at this time. Barriers to Discharge No Discharge Plan Home Transportation Arrangement Spouse Referrals Initiated None needed Whiteboard Updated in Patient Room with Yes name and ext. 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 No Height 182.88 cm Weight 117.934 kg Body Mass Index (BMI) 35.2 Hearing Ability Normal Visual Impairment No Limitations Visual Assist Glasses Dentition Type Teeth, Natural Present,Teeth, Missing Barriers to Learning None Hx Anesthesia Reactions No Hx Family Anesthesia Reaction No Hx Malignant Hyperthermia No Hx Blood Transfusions No Hx Blood Transfusion Reaction No Anesthesia Review Requested No Studio Coordinator No alcohol intake current alcohol intake frequency 0-2 drinks per day Smoking Status Former smoker Tobacco type e-cigarettes how long ago did patient quit smoking 2010 Substance Use Type does not use Pain Present Pain Reported Musculoskeletal Symptoms Joint Pain History of Falling (Recent or History of No ) Patient is completely paralyzed or No completely immobile Mental Status Oriented to own ability Is patient on oxygen? No Does patient have MONTES/SOB No Hx Sleep Apnea Yes CPAP/BIPAP use prescribed and used routinely Currently Taking a Beta Stephon No Can You Climb a Flight of Stairs Without Yes SOB Hx Chest Pain No Hx SOB No Hx Syncope or Dizziness No Anti-Coagulant Therapy No Has a Air Breaker Operator No Cardiac Testing No Hx Pacemaker/ICD No Pacemaker Rep Required? No Cardiac Clearance Received No Diet Type At Home Regular Dysphagia No Gastrointestinal Symptoms None Chronic UTI No Urinary Catheter Present No Hx Urinary Self Catheterization No Diabetes No: Pre-diabetes Hx Drug Resistant Organism No Presence of External or Internal Medical No Devices Received a COVID vaccine? Yes Received all doses? No Marital Status Lives With spouse,children Current Living Arrangements House Number of Floors (Floors) 3 or More Floors Support System Child/Children,Spouse Does the Patient Have Assistance After Yes Surgery Patient Discharge Plan Description Return Home Comment Pt advised 2-3 day length of stay per surgeon Feels Safe in Current Environment Yes Been Physically Hurt or Threatened By a No Person in Current Environment Do you have thoughts of harming yourself None or others? Are you currently considering suicide? No Do you have a plan to hurt yourself or No Plan others? Do You Have Any Spiritual Beliefs That No May Affect Your HC Choices? Do You Have Any Cultural Practices That No May Affect Your HC Choices? Who Can We Speak to About Patient's Care Family, friends Identifying Code for Release of Patient Declines to issue Information Health Care Proxy/Next of Kin Daniela () Health Care Proxy Emergency Contact Name Tom (son) Emergency Contact Advance Directives? No Power of Head Of Art No PAC Instructions Bring CPAP/BIPAP,Durable medical equipment,Medications to take/avoid,No ETOH/ petroleum product on skin DOS, NPO,Pre-op antibiotic,Pre- surgical wash,Sensory aids, Sturdy shoes/comfortable clothes,Do not bring valuables and remove jewelry
--- NOTE | 2023-12-23 15:23 | PC.NURSE ---
Pt up walking in the halls again. States abdomen is a bit crampy but easily tolerable. Tolerated full liquid diet without difficulty. Discussed upgrading diet to general with a focus toward easy to digest foods. Pt agreeable. Called the Unit Host and ordered meatloaf and mashed potatoes and ice cream. Pt states he is passing flatus. Denies needs at this time.
[2023-12-23 16:36] VITALS: BP 128/76; PULSE 102; RESP 16; TEMP 36.7; O2SAT 99
[2023-12-23 20:08] VITALS: BP 140/89; PULSE 98; RESP 16; TEMP 36.4; O2SAT 94
[2023-12-24 00:05] VITALS: BP 136/77; PULSE 91; RESP 16; TEMP 37.4; O2SAT 93
[2023-12-24] MEDS: HYDROCODONE/ACET 5/325 TABLET 2 TAB PO (01:49)
[2023-12-24 04:35] VITALS: BP 127/71; PULSE 95; RESP 16; TEMP 36.9; O2SAT 94
[2023-12-24] MEDS: ENOXAPARIN 40 MG/0.4 ML SYRINGE SUBCUT (08:47)
[2023-12-24 09:00] VITALS: BP 127/80; PULSE 93; RESP 16; TEMP 36.3; O2SAT 100
[2023-12-24] MEDS: HYDROCODONE/ACET 5/325 TABLET 1 TAB PO ×3 (09:31→22:25)
--- NOTE | 2023-12-24 12:50 | P.PN_ITS ---
Subjective Subjective Date Patient Seen: 12/24/23 Time Patient Seen: 12:50 Interval history: Leonarda has passed gas and has tolerated a regular diet Exam Vital Signs (past 8 hours): - 12/24/23 09:00 Temperature 97.4 F L Pulse Rate 93 H Respiratory Rate 16 Blood Pressure 127/80 Pulse Oximetry 100 Fraction of Inspired Oxygen 21 Oxygen Delivery Method Room Air Oxygen Flow Rate 0 Narrative Exam Narrative: Abdomen is soft Upper midline incision is clean dry and intact Objective Labs 12/23/23 05:14 12/23/23 05:14 [facility] Medical History (Updated 12/17/23 @ 13:17 by Nasima Lopez RN) History of COVID-19 (2020) Right hip pain MAMIE (obstructive sleep apnea) Prediabetes Hyperlipoproteinemia Elevated blood pressure reading without diagnosis of hypertension Surgical History History of photorefractive keratectomy (PRK) Hx of colonoscopy (11/05/23) History of surgery (2008) History of biopsy (08/11/23) Family History Grandmother Hypertension Diabetes mellitus Mother Diabetes mellitus Social History household members: spouse and children Smoking Status: Former smoker alcohol intake: current Assessment & Plan Assessment and plan (1) Colonic mass: Status: Acute Plan Doing well following laparoscopic assisted left hemicolectomy. Plan on discharge home tomorrow morning Quality VTE Deep Vein Thrombosis/Pulmonary Embolism Present on Admission: No
--- NOTE | 2023-12-24 16:44 | PC.NURSE ---
Pt A/O Midline mitzy CDI; 3 lap sites also CDI. Ambulating in hallway w/o incidence. SL intact/patent. Independent in room. Call light w/in reach, pt calls appropriately for needs. Continue w/plan of care.
[2023-12-24 17:00] VITALS: BP 137/85; PULSE 87; RESP 16; TEMP 36.3; O2SAT 100
[2023-12-24 21:00] VITALS: BP 135/73; PULSE 90; RESP 16; TEMP 36.7; O2SAT 94
[2023-12-25 04:00] VITALS: BP 136/81; PULSE 85; RESP 18; TEMP 36.8; O2SAT 96
[2023-12-25 08:48] VITALS: BP 134/78; PULSE 80; RESP 17; TEMP 36.4; O2SAT 94
--- NOTE | 2023-12-25 09:03 | PM.DS.1 ---
History of Present Illness History of Present Illness Date Patient Seen: 12/25/23 Time Patient Seen: 09:03 Chief complaint: Left Laparoscopically Assisted Colectomy Narrative: 53-year-old man with a left colon mass admitted for elective laparoscopic left hemicolectomy. Discharge Providers Provider Date of admission: 12/22/23 09:31 Discharge Date: 12/25/23 Primary care physician: Max Morocho MD Discharge provider: Ricardo Dixon MD Summary Hospital Course Discharge Diagnosis: Colon mass Hospital Course: Patient underwent a laparoscopic-assisted left hemicolectomy November 20. Unremarkable postoperative course. Pain well controlled with oral medication, tolerant of a diet, has bowel function and ambulatory. Exam Vital Signs (past 8 hours): - 12/25/23 04:00 12/25/23 08:48 Temperature 98.2 F 97.6 F Pulse Rate 85 80 Respiratory Rate 18 17 Blood Pressure 136/81 134/78 Pulse Oximetry 96 94 Oxygen Flow Rate 0 0 Fraction of Inspired Oxygen 21 Oxygen Delivery Method Room Air Oxygen Flow Rate 0 Narrative Exam Narrative: General adult man alert oriented no acute distress Chest nonlabored respiration Abdomen soft appropriately tender to palpation Extremities warm well perfused Objective Labs 12/23/23 05:14 12/23/23 05:14 [facility] Medical History (Updated 12/17/23 @ 13:17 by Nasima Lopez RN) History of COVID-19 (2020) Right hip pain MAMIE (obstructive sleep apnea) Prediabetes Hyperlipoproteinemia Elevated blood pressure reading without diagnosis of hypertension Surgical History History of photorefractive keratectomy (PRK) Hx of colonoscopy (11/05/23) History of surgery (2008) History of biopsy (08/11/23) Family History Grandmother Hypertension Diabetes mellitus Mother Diabetes mellitus Social History household members: spouse and children Smoking Status: Former smoker alcohol intake: current Discharge Plan Discharge Plan Patient Disposition: Home Provider Discharge Comment: -Okay to shower -Do not submerge wounds in water until seen in follow-up. -No lifting >10 lbs x 4 weeks. -Walking only for exercise for 4 weeks. -No driving while taking narcotics. Discharge orders & Medications Prescriptions: New hydrocodone-acetaminophen 5-325 mg tablet 1 tab PO Q8H PRN (Reason: pain) Qty: 14 0RF Continued lisinopril 20 mg tablet 20 mg PO DAILY ibuprofen 200 mg tablet 200 mg PO Q6H PRN (Reason: Pain (Scale Score 4-6)) Follow up/Referrals: Scot Almaraz MD [Physician] - As previously scheduled Diet/Activity/Treatments Diet: Regular Skin/Wound/Dressing Care Report to your healthcare provider any signs of infection, such as:: chills, fever, increased pain, unusual drainage and unusual redness Visit Report/Discharge Packet Instructions: DI for Colectomy, DI for Laparoscopy, How to Prevent Falls, DI for Prescription Opioid Use, [facility]: Wound Care Stand Alone Forms: Patient Portal/API, Stroke Signs & Symptoms Discharge Data Primary Care Provider: Max Morocho VTE Deep Vein Thrombosis/Pulmonary Embolism Present on Admission: No
[2023-12-25] MEDS: HYDROCODONE/ACET 5/325 TABLET 2 TAB PO (11:11)
--- NOTE | 2023-12-25 12:55 | PC.NURSE ---
Discharge. Pt feels ready to d/c to home. Dressing changed to abd to aquacel, bandaids changed. May shower, leave aquacel in place until follow up appt. Already has same. Reviewed d/c packet, diet, sxs of infection. Fall potential w/narcotic use. Reviewed surgeons sheet. Rx has been esent. Pt d/c to home via auto w/spouse.
--- NOTE | 2023-12-25 13:06 | CM.DPC ---
DCP Continued Reviewed EMR and team rounds for pt?s medical status. Per RN notes, pt is ambulating in hallways and is feeling ready for discharge. No other dc needs anticipated at this time. Plan: Discharge order is in, anticipating dc home with spouse. CM Team will continue to follow for coordination of discharge plans. YASMINE Romano
== END 2023-12-25 11:00 | disposition home or self-care (01) | DRG 331 ==
PROVIDERS: Admitting Provider Surgery; PCP Internal Medicine Hematology & Oncology; Referring Provider Surgery; Visit Provider Surgery
PROC: 0DTE0ZZ Resection of Large Intestine, Open Approach (ICD-10-PCS; principal; 2023-12-22 11:45)
DX: D12.3 Benign neoplasm of transverse colon (principal); I10 Essential (primary) hypertension; Z87.891 Personal history of nicotine dependence
CPT/HCPCS: 36415; 44204; 80048; 82378; 83036; 85025; C9290; J0171; J0295; J0330; J1100; J1170; J1650; J1885; J2405; J2704; J3010; J7121